=== PATIENT | male | born 1965 | race Caucasian/White ===

== ENCOUNTER 2019-03-28 21:22 | Emergency (ER) | payer SELFPAY, BC ==
[2019-03-28] MEDS: LIDOCAINE 1% (MPF) 5 ML VIAL INJ (23:27)
[2019-03-28] MEDS: AZITHROMYCIN 500 MG TAB PO (23:27)
[2019-03-28] MEDS: CEFTRIAXONE 250 MG INJ IM (23:27)
[2019-03-28] MEDS: LORAZEPAM 1 MG TAB PO (23:27)
== END 2019-03-29 00:43 | disposition home or self-care (01) ==
LOC: FTE 03-29 00:43
DX: K13.79 Other lesions of oral mucosa (principal); F41.9 Anxiety disorder, unspecified
CPT/HCPCS: 87110; 87591; 87880; 96372; 99284-25